=== PATIENT | male | born 1960 | race Caucasian/White ===

== ENCOUNTER 2017-08-07 02:59 | Observation (INO) | payer SELFPAY ==
[2017-08-07] MEDS ORDERED: ZOFRAN ONE (03:10)
[2017-08-07] MEDS ORDERED: PLAVIX ONE ×2 (03:17→11:58)
[2017-08-07] MEDS ORDERED: HEPARIN 10,000 UNITS/10 ML ONE ×2 (03:29→11:58)
[2017-08-07] MEDS ORDERED: VERSED ONE (03:29)
[2017-08-07] MEDS ORDERED: HEPARIN/NS 5000 UNIT/500ML(CATH LAB) 1,500 ML IR ONE (03:29)
[2017-08-07] MEDS ORDERED: ANGIOMAX IV ONE (03:30)
[2017-08-07] MEDS ORDERED: SUBLIMAZE ONE (03:30)
[2017-08-07] MEDS ORDERED: XYLOCAINE 2% INFILTRATI ONE (03:31)
[2017-08-07 03:35] LABS: Basophils % (Auto) 0.5 % (0.0-1.8); Eosinophils % (Auto) 0.6 % (0.0-4.3); Hematocrit 42.8 % (35.5-45.6); Hemoglobin 14.6 gm/dl (11.8-15.2); Mean Corpuscular HGB Conc 34 % (32-34); Mean Corpuscular Hemoglobin 34 pg (28-32); Mean Corpuscular Volume 101 fl (84-94); Platelet Count 226 K/mm3 (140-440); Red Blood Count 4.23 M/mm3 (3.65-5.03); Red Cell Distribution Width 13.7 % (13.2-15.2); White Blood Count 7.9 K/mm3 (4.5-11.0)
[2017-08-07] MEDS ORDERED: NACL 0.9% 500 ML 500 ML ONE (03:35)
[2017-08-07] MEDS ORDERED: NACL 0.9% 0 ML ONE (03:35)
--- NOTE | 2017-08-07 03:35 | XRay Report ---
FINAL REPORT EXAM: XR CHEST 1V AP HISTORY: stemi TECHNIQUE: A portable upright view of the chest was obtained. FINDINGS: The heart size and mediastinum appear normal. The lungs are not congested. There are no localized infiltrates or effusions. There are EKG leads overlying the chest wall. The bones and soft tissues well maintained. IMPRESSION: No active chest disease.
[2017-08-07] MEDS ORDERED: NITROGLYCERIN SYRINGE 3 ML ONE (03:42)
[2017-08-07] MEDS ORDERED: CALAN ONE (03:43)
[2017-08-07 03:52] LABS: Alanine Aminotransferase 15 units/L (7-56); Albumin 3.7 g/dL (3.9-5); Albumin/Globulin Ratio 1.3 %; Alkaline Phosphatase 54 units/L (35-129); Anion Gap 22 mmol/L; BUN/Creatinine Ratio 16; Blood Urea Nitrogen 14 mg/dL (9-20); Calcium 7.9 mg/dL (8.4-10.2); Carbon Dioxide 19 mmol/L (22-30); Creatine Kinase 97 units/L (55-170); Glucose 126 mg/dL (75-100); Potassium 3.8 mmol/L (3.6-5.0); Sodium 140 mmol/L (137-145); Total Protein 6.6 g/dL (6.3-8.2)
[2017-08-07] MEDS ORDERED: NACL 0.9% 1000 ML 1,000 ML IV ONE (04:06)
[2017-08-07] MEDS ORDERED: AMBIEN PO PRN (04:31)
[2017-08-07] MEDS ORDERED: MILK OF MAGNESIA PO PRN (04:31)
[2017-08-07] MEDS ORDERED: DULCOLAX PR PRN (04:31)
[2017-08-07] MEDS ORDERED: XANAX PO PRN (04:31)
[2017-08-07] MEDS ORDERED: PERCOCET 5/325 PO PRN (04:31)
[2017-08-07] MEDS ORDERED: MOTRIN PO PRN (04:31)
[2017-08-07] MEDS ORDERED: ALUM-MAG HYDROX-SIMETH 200-200-20MG/5ML PO PRN (04:31)
[2017-08-07] MEDS ORDERED: ZOFRAN IV PRN (04:31)
[2017-08-07] MEDS ORDERED: MORPHINE IV PRN (04:31)
--- NOTE | 2017-08-07 04:32 | History and Physical Report ---
ATTENDING PHYSICIAN: Rigo Dueñas MD REASON FOR ADMISSION: ST elevation myocardial infarction. HISTORY OF PRESENT ILLNESS: The patient is a 57-year-old gentleman with no significant past medical history who presented to [facility] with substernal chest pain present for approximately one hour. The patient was picked up by EMS ____ EKG showing a 4-[address] elevation myocardial infarction in the anterior leads with reciprocal changes inferiorly. PAST MEDICAL HISTORY: None. PAST SURGICAL HISTORY: None. SOCIAL HISTORY: The patient drinks several drinks per day. He occasionally utilizes cocaine and he has at least a pack per day smoking habit. FAMILY HISTORY: Nothing significant family history of early onset coronary artery disease. REVIEW OF SYSTEMS: Twelve point review of systems negative except for pertinent positives in HPI. LABORATORY DATA: Pending. EKG shows sinus rhythm with ST elevation in the precordial leads V1 through V4 with reciprocal changes inferolaterally. ASSESSMENT: ST elevation myocardial infarction. PLAN: The patient will be taken to the cardiac catheterization lab emergently for emergent cardiac catheterization. JOB# [id number] MR/NTS
[2017-08-07] MEDS ORDERED: COREG PO ONE (04:36)
[2017-08-07] MEDS ORDERED: PLAVIX PO ONE ×2 (04:36→04:50)
[2017-08-07] MEDS ORDERED: ZESTRIL PO ONE (04:36)
[2017-08-07] MEDS ORDERED: BABY ASPIRIN PO ONE (04:36)
--- NOTE | 2017-08-07 04:45 | Cardiac Catherization Report ---
ATTENDING PHYSICIAN: Rigo Dueñas MD PROCEDURE: 1. Left heart catheterization. 2. Left ventriculogram via hand injection. 3. PCI of the LAD with placement of a 3.0 x 18 mm Xience drug-eluting stent. INDICATIONS FOR PROCEDURE: The patient presented to the Emergency Room via EMS with acute anterior ST elevation myocardial infarction. ESTIMATED CONTRAST USED: Less than 30 mL. ESTIMATED CONTRAST USED: 140 mL. ESTIMATED BLOOD LOSS: Less than 30 mL. COMPLICATIONS: None. PROCEDURE IN DETAIL: The patient was brought to the cardiac catheterization lab emergently. The patient was prepped and draped in usual sterile fashion. A 2 mL of 1% lidocaine were injected around the right radial artery and a 6-Kiswahili sheath was placed via modified Seldinger technique. Next, a Sycamore catheter was advanced over the wire across the aortic valve into the left ventricle. The left ventricular pressure was measured and left ventriculogram was performed via hand injection. Next, pullback pressure was measured across the aortic valve. The Sycamore catheter was then engaged into the right coronary artery and angiography performed in multiple views. Next, a Sycamore catheter was removed over the wire and an EBU 3.5 guide catheter was advanced over the wire and engaged into the left main coronary ostia. Angiography was then performed in multiple views. RESULTS: The left main coronary artery is a large caliber vessel that bifurcates into the left anterior descending and left circumflex coronary arteries. There is no significant disease within the left main coronary artery system. The left circumflex coronary artery is a moderate caliber nondominant vessel that gives off 1 large obtuse marginal branch. There is no significant disease within the left circumflex coronary artery system. The left anterior descending coronary artery is a moderate to large caliber vessel that shows 99% stenosis just beyond a moderate caliber first diagonal branch. The 99% stenosis is approximately 16 mm in length. The remainder of the left anterior descending coronary artery shows luminal irregularities without significant stenosis. The first diagonal branch is a moderate caliber vessel that shows 50% ostial stenosis. RECOMMENDATIONS: 1. Emergent PCI of the LAD. 2. A BMW guidewire was advanced into the left anterior descending coronary artery, across the mid segment and 99% stenosis and anchored into the distal LAD. Next, a 2.5 x 12 mm balloon was advanced to the mid segment stenosis and inflated for 20 seconds. The balloon was then removed and a 3.0 x 18 mm Xience drug-eluting stent was advanced to the lesion and deployed at 16 atmospheres to provide luminal diameter of 3.25 mm. The stent balloon was then removed over the wire. Angiography was performed in multiple views. The stent was seen to be well apposed. The BMW wire was removed. Final angiography was performed and 3.5 EBU guide catheter was removed over the wire. Hemostasis was gained via TR band. Initial angiography demonstrated MARCELL 1 flow with 99% stenosis of the mid segment LAD. Post-procedural angiography demonstrated 0% residual stenosis and MARCELL 3 flow throughout. RECOMMENDATIONS: The patient will be admitted to the ICU. The patient will be started on dual antiplatelet therapy, statin, beta-drew and JAXON inhibitor. I recommend to the patient that he no longer smoke or utilize illicit substances. JOB# [id number] /JANE
[2017-08-07] MEDS ORDERED: ZOFRAN IV ONE (04:54)
[2017-08-07] MEDS ORDERED: NACL 0.9% 1000 ML 1,000 ML IV SCH (05:00)
--- NOTE | 2017-08-07 05:36 | Emergency Department Report ---
ED Chest Pain HPI - General Chief Complaint: Chest Pain Stated Complaint: CHEST PAIN Source: patient, EMS Mode of arrival: Stretcher Limitations: No Limitations, Other - History of Present Illness Initial Comments: Patient is a 87-year-old male with no past medical history presents to the ER via EMS with chest pain and shortness of breath that started just prior to arrival. EMS reported on an EKG prior to arrival. EKG determined to be a STEMI. Code STEMI called , Dr. Dueñas the french binder agricultural economics professor informed. Dr. Dueñas agreed that it is a STEMI. STEMI protocol followed. Patient lethargic but oriented 4. Patient answers questions appropriately. Patient complains of nausea and vomiting and diaphoresis. Patient denies past medical history. See nurse's notes. EMS report reviewed. Per EMS patient was given 324 mg of aspirin, placed on oxygen at 15 L, nitroglycerin 0.4 sublingual, and morphine 4 mg IV all given prior to arrival. MD Complaint: chest pain -: Sudden Onset: during rest Pain Location: substernal, left chest Severity: severe Severity scale (0 -10): 8 Quality: tightness, aching, heaviness, sharp, pressure Consistency: constant Improves With: nitroglycerin, rest, remaining still Worsens With: exertion, movement re: nausea, diaphoresis, dyspnea, sense of impending doom Other Symptoms: palpitations Treatments Prior to Arrival: aspirin, nitroglycerin, oxygen, other (morphine) Aspirin use within the Past 7 Days: (0) No - Related Data On Oral Contraceptives: No Allergies Allergy/AdvReac Type Severity Reaction Status Date / Time No Known Allergies Allergy Unverified 08/07/17 03:21 Heart Score - HEART Score History: Highly suspicious EKG: Significant ST-depression Age: 45-65 Risk factors: No known risk factors Troponin: < normal limit HEART Score: 5 ED Review of Systems ROS: Stated complaint: CHEST PAIN Other details as noted in HPI Comment: All other systems reviewed and negative Constitutional: diaphoresis, malaise, weakness Respiratory: see HPI, shortness of breath Cardiovascular: chest pain, palpitations, dyspnea on exertion Endocrine: no symptoms reported ED Past Medical Hx - Past Medical History Previous Medical History?: No - Surgical History Past Surgical History?: No - Family History Family history: hypertension - Social History Smoking Status: Current Every Day Smoker Substance Use Type: None ED Physical Exam - General Limitations: Other General appearance: lethargic, in distress - Head Head exam: Present: atraumatic, normocephalic - Eye Eye exam: Present: normal appearance - ENT ENT exam: Present: mucous membranes dry, other (cyanosis noted around the lips) - Neck Neck exam: Present: normal inspection - Respiratory Respiratory exam: Present: normal lung sounds bilaterally. Absent: respiratory distress - Cardiovascular Cardiovascular Exam: Present: regular rate, normal rhythm. Absent: systolic murmur, diastolic murmur, rubs, gallop - GI/Abdominal GI/Abdominal exam: Present: soft, normal bowel sounds - Rectal Rectal exam: Present: deferred - Extremities Exam Extremities exam: Present: normal inspection - Back Exam Back exam: Present: normal inspection - Neurological Exam Neurological exam: Present: oriented X3 - Skin Skin exam: Present: intact, cyanosis, diaphoretic. Absent: rash ED Course Vital Signs 08/07/17 08/07/17 03:18 03:37 Temperature 98.1 F Pulse Rate 64 72 Respiratory 20 24 Rate Blood Pressure 112/77 O2 Sat by Pulse 97 95 Oximetry MARCELL score - Marcell Score Age > 65: (0) No Aspirin use within the Past 7 Days: (0) No 3 or more CAD Risk Factors: (0) No 2 or more Angina events in past 24 hrs: (0) No Known CAD with more than 50% Stenosis: (0) No Elevated Cardiac Markers: (0) No ST Deviation Greater than 0.5mm: (1) Yes MARCELL Score: 1 ED Medical Decision Making - Lab Data Result diagrams: 08/07/17 03:22 08/07/17 03:00 - EKG Data -: EKG Interpreted by Me EKG shows normal: sinus rhythm Rate: normal - EKG Data Interpretation: acute TN - Radiology Data Radiology results: image reviewed interpreted by me: No acute findings on chest xr - Medical Decision Making STEMI protocol followed. At bedside entire time. I with patient to slab inspector report given to slab inspector. Care handed off to slab inspector at 03:26. - Differential Diagnosis cp. TN, stemi, sob. Critical Care Time: Yes Critical care attestation.: If time is entered above; I have spent that time in minutes in the direct care of this critically ill patient, excluding procedure time. Critical Care Time: 45 minutes spent with patient for critical care time. For STEMI. At bedside entire time. ED Disposition Clinical Impression: STEMI (ST elevation myocardial infarction), Chest pain, Shortness of breath Disposition: DC-09 OP ADMIT IP TO THIS HOSP Is pt being admited?: Yes Does the pt Need Aspirin: No Condition: Critical Time of Disposition: 03:24
[2017-08-07] MEDS: COLACE PO SCH ×2 (09:22→21:58)
[2017-08-07 09:39] LABS: Urine Drugs of Abuse Note Disclamer
[2017-08-07] MEDS: ZESTRIL PO SCH (11:57)
[2017-08-07] MEDS ORDERED: LOPRESSOR IV ONE (11:58)
[2017-08-07] MEDS ORDERED: NACL 0.9% 1000 ML ONE (11:58)
[2017-08-07] MEDS ORDERED: NITROSTAT SL ONE (11:58)
[2017-08-07] MEDS ORDERED: HEPARIN/ 0.45% NACL-25,000 UNIT/500 ML ONE (11:58)
--- NOTE | 2017-08-07 17:23 | Event Note ---
Date: 08/07/17 Patient is clinically stable following her angioplasty and stenting of the LAD for acute STEMI. He is chest pain-free, and the right radial cath site is well-healed without hematoma. He'll be observed overnight in the ICU, transferred to telemetry tomorrow. Continue anti-ischemic therapy including dual oral antiplatelet therapy.
[2017-08-07] MEDS: COREG PO SCH (21:58)
[2017-08-08 04:36] LABS: Basophils % (Auto) 0.3 % (0.0-1.8); Hematocrit 46.1 % (35.5-45.6); Hemoglobin 15.4 gm/dl (11.8-15.2); Mean Corpuscular HGB Conc 33 % (32-34); Mean Corpuscular Hemoglobin 33 pg (28-32); Mean Corpuscular Volume 99 fl (84-94); Platelet Count 225 K/mm3 (140-440); Red Blood Count 4.66 M/mm3 (3.65-5.03); Red Cell Distribution Width 13.3 % (13.2-15.2); White Blood Count 8.4 K/mm3 (4.5-11.0)
[2017-08-08 04:54] LABS: Alanine Aminotransferase 19 units/L (7-56); Albumin 3.5 g/dL (3.9-5); Alkaline Phosphatase 59 units/L (35-129); Anion Gap 18 mmol/L; BUN/Creatinine Ratio 9; Blood Urea Nitrogen 9 mg/dL (9-20); Calcium 8.4 mg/dL (8.4-10.2); Carbon Dioxide 24 mmol/L (22-30); Chloride 102.7 mmol/L (98-107); Glucose 95 mg/dL (75-100); Potassium 4.4 mmol/L (3.6-5.0); Sodium 140 mmol/L (137-145)
[2017-08-08 05:04] LABS: Albumin/Globulin Ratio 1.2 %; Total Protein 6.4 g/dL (6.3-8.2)
[2017-08-08] MEDS: COLACE PO SCH ×2 (10:26→21:51)
[2017-08-08] MEDS: BABY ASPIRIN PO SCH (10:26)
[2017-08-08] MEDS: ZESTRIL PO SCH (10:26)
[2017-08-08] MEDS: COREG PO SCH ×2 (10:26→21:51)
[2017-08-08] MEDS: PLAVIX PO SCH (10:26)
--- NOTE | 2017-08-08 11:03 | Progress Note ---
Assessment and Plan Acute STEMI s/p PCI of the LAD Ischemic Cardiomyopathy EF 30-35% on echocardiogram Substance abuse Plan: Transfer to telemetry. Continue anti-ischemic therapy including dual oral antiplatelet therapy. For planned discharge home tomorrow. Subjective Date of service: 08/08/17 Interval history: Patient reports he is feeling better. He denies chest pain. Short burst on NSVT on telemetry. Patient remained asymptomatic. Objective Vital Signs Temp Pulse Pulse Resp BP Pulse Ox 08/08/17 10:26 69 129/78 08/08/17 08:50 113/78 97 08/08/17 08:40 62 18 113/78 96 08/08/17 08:30 76 21 113/78 88 08/08/17 08:20 80 15 113/78 95 08/08/17 08:10 59 L 15 113/78 94 08/08/17 08:00 98.1 F 57 L 60 15 113/78 96 08/08/17 07:50 59 L 15 133/85 95 08/08/17 07:40 81 19 133/85 94 08/08/17 07:30 64 14 133/85 95 08/08/17 07:20 54 L 18 133/85 95 08/08/17 07:10 60 14 133/85 94 08/08/17 07:00 56 L 16 115/67 08/08/17 06:50 55 L 15 115/67 95 08/08/17 06:40 55 L 15 115/67 94 08/08/17 06:30 59 L 17 115/67 95 08/08/17 06:20 56 L 15 115/67 98 08/08/17 06:10 51 L 13 115/67 97 08/08/17 06:00 52 L 15 115/67 97 08/08/17 05:50 54 L 15 120/72 97 08/08/17 05:40 54 L 14 120/72 97 08/08/17 05:30 55 L 16 120/72 97 08/08/17 05:20 55 L 15 120/72 97 08/08/17 05:10 55 L 14 120/72 97 08/08/17 05:00 82 15 113/74 96 08/08/17 04:50 56 L 16 113/74 97 08/08/17 04:40 54 L 16 113/74 97 08/08/17 04:30 53 L 14 113/74 97 08/08/17 04:20 56 L 15 113/74 98 08/08/17 04:10 55 L 15 113/74 99 08/08/17 04:00 59 L 62 16 110/67 99 08/08/17 03:51 98.0 F 08/08/17 03:50 54 L 15 110/67 95 08/08/17 03:40 62 14 110/67 94 08/08/17 03:30 55 L 15 110/67 95 08/08/17 03:20 56 L 14 110/67 95 08/08/17 03:10 79 14 110/67 98 08/08/17 03:00 54 L 15 110/67 87 08/08/17 02:50 49 L 15 123/75 95 08/08/17 02:40 56 L 17 123/75 95 08/08/17 02:30 55 L 16 123/75 95 08/08/17 02:20 56 L 16 123/75 95 08/08/17 02:10 61 14 123/75 94 08/08/17 02:00 58 L 16 123/75 84 08/08/17 01:50 67 16 120/76 96 08/08/17 01:40 56 L 18 120/76 95 08/08/17 01:30 61 15 120/76 95 08/08/17 01:20 69 13 120/76 96 08/08/17 01:10 69 14 120/76 96 08/08/17 01:00 56 L 15 120/76 86 08/08/17 00:50 58 L 17 122/77 95 08/08/17 00:40 56 L 15 122/77 96 08/08/17 00:30 56 L 15 122/77 97 08/08/17 00:20 69 16 122/77 97 08/08/17 00:10 58 L 14 122/77 94 08/08/17 00:00 98.4 F 57 L 14 122/77 97 08/07/17 23:50 57 L 15 142/77 95 08/07/17 23:40 61 15 142/77 95 08/07/17 23:30 57 L 17 142/77 96 08/07/17 23:20 59 L 16 142/77 96 08/07/17 23:10 66 12 142/77 99 08/07/17 23:00 86 13 142/77 98 08/07/17 22:50 58 L 16 148/70 96 08/07/17 22:40 61 18 148/70 95 08/07/17 22:30 83 21 148/70 96 08/07/17 22:20 58 L 15 148/70 95 08/07/17 22:10 59 L 14 148/70 96 08/07/17 22:00 68 15 148/70 93 08/07/17 21:58 65 135/71 08/07/17 21:50 81 16 135/71 96 08/07/17 21:40 62 17 135/71 97 08/07/17 21:30 62 19 97 08/07/17 21:20 67 17 135/71 95 08/07/17 21:11 63 16 135/71 96 08/07/17 21:01 71 18 135/71 97 08/07/17 20:51 82 14 135/75 96 08/07/17 20:41 65 18 135/75 98 08/07/17 20:31 70 17 135/75 97 08/07/17 20:21 65 17 135/75 98 08/07/17 20:10 68 22 135/75 94 08/07/17 20:00 98.1 F 78 55 L 11 L 135/75 96 08/07/17 19:51 68 17 135/72 96 08/07/17 19:46 93 08/07/17 19:41 75 21 135/72 94 08/07/17 19:30 72 18 135/72 93 08/07/17 19:21 69 18 135/72 96 08/07/17 19:11 76 16 135/72 93 08/07/17 19:00 69 19 135/72 93 08/07/17 18:51 68 16 142/81 96 08/07/17 18:45 70 16 142/81 95 08/07/17 18:41 65 17 142/81 95 08/07/17 18:31 64 18 142/81 94 08/07/17 18:21 65 19 142/81 97 08/07/17 18:11 63 19 142/81 95 08/07/17 18:01 63 17 142/81 97 08/07/17 17:51 142/81 79 L 08/07/17 17:41 142/81 93 08/07/17 17:31 142/81 93 08/07/17 17:21 142/81 96 08/07/17 17:11 142/81 93 08/07/17 17:01 142/81 95 08/07/17 16:51 144/81 93 08/07/17 16:41 144/81 93 08/07/17 16:31 144/81 93 08/07/17 16:24 98.4 F 08/07/17 16:21 144/81 92 08/07/17 16:11 144/81 91 08/07/17 16:01 144/81 93 08/07/17 15:51 132/73 93 08/07/17 15:41 63 16 132/73 93 08/07/17 15:31 68 12 132/73 97 08/07/17 15:21 63 19 132/73 95 08/07/17 15:11 59 L 18 132/73 96 08/07/17 15:01 66 13 132/73 96 08/07/17 14:51 90 15 134/74 98 08/07/17 14:41 64 18 134/74 96 08/07/17 14:31 67 14 134/74 97 08/07/17 14:21 60 14 134/74 95 08/07/17 14:11 66 16 134/74 94 08/07/17 14:01 67 15 134/74 94 08/07/17 13:51 64 17 136/80 93 08/07/17 13:41 63 13 136/80 95 08/07/17 13:31 68 15 136/80 92 08/07/17 13:21 70 14 136/80 93 08/07/17 13:11 61 18 136/80 93 08/07/17 13:01 63 17 136/80 92 08/07/17 12:51 65 13 137/88 81 L 08/07/17 12:41 60 16 137/88 82 L 08/07/17 12:31 67 12 137/88 94 08/07/17 12:21 77 15 137/88 95 08/07/17 12:11 63 15 137/88 93 08/07/17 12:01 62 16 137/88 95 08/07/17 12:00 63 95 08/07/17 11:57 64 139/85 08/07/17 11:51 63 17 133/80 95 08/07/17 11:47 97.8 F 08/07/17 11:41 66 12 133/80 96 08/07/17 11:31 59 L 14 133/80 96 08/07/17 11:21 59 L 15 133/80 96 08/07/17 11:11 63 15 133/80 94 08/07/17 11:01 59 L 14 133/80 96 - Physical Examination General: No Apparent Distress Cardiac: Positive: Reg Rate and Rhythm - Labs and Meds Cardiac Enzymes 08/08/17 Range/Units 04:04 AST 64 H (5-40) units/L CBC 08/08/17 Range/Units 04:04 WBC 8.4 (4.5-11.0) K/mm3 RBC 4.66 (3.65-5.03) M/mm3 Hgb 15.4 H (11.8-15.2) gm/dl Hct 46.1 H (35.5-45.6) % Plt Count 225 (140-440) K/mm3 Lymph # 1.9 (1.2-5.4) K/mm3 Porter # 0.8 (0.0-0.8) K/mm3 Eos # 0.1 (0.0-0.4) K/mm3 Baso # 0.0 (0.0-0.1) K/mm3 Comprehensive Metabolic Panel 08/08/17 Range/Units 04:04 Sodium 140 (137-145) mmol/L Potassium 4.4 (3.6-5.0) mmol/L Chloride 102.7 (98-107) mmol/L Carbon Dioxide 24 (22-30) mmol/L BUN 9 (9-20) mg/dL Creatinine 1.0 (0.8-1.5) mg/dL Glucose 95 (75-100) mg/dL Calcium 8.4 (8.4-10.2) mg/dL AST 64 H (5-40) units/L ALT 19 (7-56) units/L Alkaline Phosphatase 59 (35-129) units/L Total Protein 6.4 (6.3-8.2) g/dL Albumin 3.5 L (3.9-5) g/dL
[2017-08-08] MEDS: ALDACTONE PO SCH (13:35)
[2017-08-09 08:59] VITALS: BP 129/91
--- NOTE | 2017-08-09 10:10 | Discharge Summary ---
Providers - Providers Date of Admission: 08/07/17 04:31 Attending physician: ANDREA HERNANDEZ 08/07/17 04:29 Consult to Cardiac Rehabilitation [CONS] Routine Reason For Exam: Cardiac Rehab Evaluation 08/07/17 04:31 Consult to Dietitian/Nutrition [CONS] Routine Physician Instructions: Reason For Exam: Reason for Consult: Diet education Primary care physician: STOCKROOM KEEPER Hospitalization Reason for admission: STEMI Condition: Good Hospital course: Pt presented to hospital with acute anterior wall ST elevation ID. He underwent urgent cardiac cath and LAD PCI. Post procedure echo revealed EF 30- 35% consistent with ischemic cardiomyopathy. Disposition: DC-01 TO HOME OR SELFCARE Time spent for discharge: 30 min Core Measure Documentation - Palliative Care Palliative Care/ Comfort Measures: Not Applicable - Core Measures Any of the following diagnoses?: acute ID, heart failure - Acute ID Discharge Requirements Aspirin at discharge: Yes JAXON/ARB for LVSD if EF <40%: Yes Beta drew at discharge: Yes Statin for LDL = or >100 mg/dl on DC: Yes - Heart Failure Discharge Requirements JAXON/ARB for LVSD if EF <40%: Yes Beta drew at discharge: Yes Exam - Constitutional Vitals: Temp Pulse Resp BP Pulse Ox 97.6 F 91 H 18 129/91 94 08/09/17 08:58 08/09/17 08:58 08/09/17 08:58 08/09/17 08:58 08/09/17 08:58 General appearance: Present: no acute distress - EENT Eyes: Present: PERRL - Neck Neck: Present: supple - Respiratory Respiratory effort: normal Respiratory: bilateral: CTA - Cardiovascular Rhythm: regular Heart Sounds: Absent: systolic murmur - Extremities Extremities: no ischemia - Integumentary Integumentary: Present: clear Plan Activity: advance as tolerated Follow up with: DORIAN HAMILTON MD [Primary Care Provider] - 7 Days MELANIE OBRIEN MD [Staff Physician] - 7 Days Prescriptions: Aspirin [Aspirin BABY CHEW TAB] 81 mg PO QDAY #30 tab.chew AtorvaSTATin [Lipitor] 40 mg PO QHS #30 tablet Carvedilol [Coreg] 3.125 mg PO BID #60 tablet Clopidogrel [Plavix] 75 mg PO QDAY #30 tablet Lisinopril [Zestril TAB] 2.5 mg PO QDAY #30 tablet Spironolactone [Aldactone] 25 mg PO QDAY #30 tablet
[2017-08-09] MEDS: BABY ASPIRIN PO SCH (10:15)
[2017-08-09] MEDS: COLACE PO SCH (10:15)
[2017-08-09] MEDS: PLAVIX PO SCH (10:15)
[2017-08-09] MEDS: COREG PO SCH (10:15)
[2017-08-09] MEDS: ALDACTONE PO SCH (10:16)
[2017-08-09] MEDS: ZESTRIL PO SCH (10:16)
== END 2017-08-09 11:35 | disposition home or self-care (01) ==
LOC: ED 02:59 → CC1 04:31 → 4A 08-08 15:34
PROVIDERS: ADMIT Internal Medicine Cardiovascular Disease; ATTEND Internal Medicine Cardiovascular Disease
DX: I21.09 ST elevation (STEMI) myocardial infarction involving other coronary artery of anterior wall (principal); I42.9 Cardiomyopathy, unspecified; F17.210 Nicotine dependence, cigarettes, uncomplicated; Z82.49 Family history of ischemic heart disease and other diseases of the circulatory system
CPT/HCPCS: 36415; 71010; 80053; 80307; 82550; 84484; 85025; 85347; 93005; 93010; 93306; 93458; 94760; 99291; A9270; C1725; C1769; C1874; C1887; C1894; C9606; G0378; J1644; J2250; J2405; J3010; J7030; 92941; J0583; J7040; Q9967

== ENCOUNTER 2019-02-03 18:24 | Emergency (ER) | payer OTHER ==
--- NOTE | 2019-02-03 18:37 | Emergency Department Report ---
Blank Doc - Documentation Documentation: pt presents with a cough that began 4-5 days ago some mucus production (+) congestion PMHx MS (+) smoker VSS order: CXR sent to [facility] for further eval
[2019-02-03 18:39] VITALS: BP 135/86
--- NOTE | 2019-02-03 20:09 | XRay Report ---
PROCEDURE: XR CHEST ROUTINE 2V TECHNIQUE: PA and lateral chest radiographs were obtained. HISTORY: cough x 4-5 days, pt is a smoker COMPARISONS: CXR 08/07/2017. FINDINGS: Heart: Normal. Mediastinum/Vessels: Normal. Lungs/Pleural space: Normal. Bony thorax: No acute osseous abnormality. IMPRESSION: No acute cardiopulmonary process seen. No change. This document is electronically signed by Yesenia Zamudio MD., February 03 2019 08:07:26 PM ET
[2019-02-03] MEDS ORDERED: TYLENOL PO ONE (21:00)
[2019-02-03] MEDS ORDERED: DUONEB *Not for PRN Use IH ONE (21:00)
[2019-02-03] MEDS ORDERED: SOLU-Medrol IM ONE (21:00)
--- NOTE | 2019-02-03 22:06 | Emergency Department Report ---
- General Chief Complaint: Upper Respiratory Infection Stated Complaint: COUGH Time Seen by Provider: 02/03/19 18:34 Source: patient Mode of arrival: Ambulatory Limitations: No Limitations - History of Present Illness Initial Comments: Patient is a 58-year-old -Romanian male with a history of hypertension and coronary artery disease who presents to the ED with complaint of acute onset persistent nasal and sinus congestion, frontal sinus pressure, no cough with pleuritic chest wall pain for the last 3 days. Patient states that he has been taking [id number] decongestants like Mucinex with no relief. Patient states that the congestion and cough as well as at night when he lays him to sleep. Patient denies fever, chills, nausea, vomiting, chest pain, shortness of breath, dizziness, change in vision, abdominal pain or sore throat. MD Complaint: cough, rhinorrhea, nasal congestion, sinus pain -: Sudden, days(s) (3) Severity: severe Severity scale (0 -10): 7 Quality: aching Consistency: constant Improves With: nothing Worsens With: nothing Context: sick contacts Associated Symptoms: denies other symptoms, myalgias, headache, rhinorrhea, nasal congestion, cough, chest pain (pleuritic). denies: fever, chills, diaphoresis, sore throat, stiff neck, shortness of breath, abdominal pain, nausea, vomiting, diarrhea, dysuria, rash, right sweats, epistaxis, hoarseness Treatments Prior to Arrival: none - Related Data Previous Rx's Medication Instructions Recorded Last Taken Type Aspirin [Aspirin BABY CHEW TAB] 81 mg PO QDAY #30 tab.chew 08/09/17 Unknown Rx AtorvaSTATin [Lipitor] 40 mg PO QHS #30 tablet 08/09/17 Unknown Rx Carvedilol [Coreg] 3.125 mg PO BID #60 tablet 08/09/17 Unknown Rx Clopidogrel [Plavix] 75 mg PO QDAY #30 tablet 08/09/17 Unknown Rx Lisinopril [Zestril TAB] 2.5 mg PO QDAY #30 tablet 08/09/17 Unknown Rx Spironolactone [Aldactone] 25 mg PO QDAY #30 tablet 08/09/17 Unknown Rx Amoxicillin/Potassium Clav 1 each PO Q12H #20 tablet 02/03/19 Unknown Rx [Augmentin 875-125 Tablet] Benzonatate [Tessalon Perles] 100 mg PO Q8HR #30 capsule 02/03/19 Unknown Rx Ibuprofen [Motrin] 800 mg PO Q8HR PRN #20 tablet 02/03/19 Unknown Rx Prednisone [predniSONE 10 mg 10 mg PO .TAPER #21 tab.ds.pk 02/03/19 Unknown Rx (6-Day Pack, 21 Tabs)] Allergies Allergy/AdvReac Type Severity Reaction Status Date / Time No Known Allergies Allergy Verified 02/03/19 18:26 ED Review of Systems ROS: Stated complaint: COUGH Other details as noted in HPI Comment: All other systems reviewed and negative Constitutional: no symptoms reported, see HPI. denies: chills, diaphoresis, fever, malaise Eyes: as per HPI. denies: eye pain, eye discharge, vision change ENT: as per HPI, congestion. denies: ear pain, throat pain, hearing loss, epistaxis Respiratory: no symptoms reported, see HPI. denies: cough, shortness of breath, SOB with exertion, SOB at rest, wheezing Cardiovascular: as per HPI. denies: chest pain, palpitations, dyspnea on exertion, edema, paroxysmal nocturnal dyspnea Endocrine: no symptoms reported, see HPI. denies: excessive sweating, flushing, intolerance to cold, intolerance to heat, increased hunger, increased thirst, increased urine, unexplained weight gain Gastrointestinal: as per HPI. denies: abdominal pain, nausea, diarrhea Genitourinary: as per HPI. denies: urgency, dysuria Musculoskeletal: as per HPI. denies: back pain, joint swelling, arthralgia Skin: as per HPI. denies: rash, lesions Neurological: as per HPI. denies: headache, weakness, numbness, paresthesias Psychiatric: as per HPI. denies: anxiety, depression Hematological/Lymphatic: as per HPI. denies: easy bleeding, easy bruising ED Past Medical Hx - Past Medical History Previous Medical History?: No Hx Hypertension: Yes Hx Heart Attack/AMI: Yes Hx Congestive Heart Failure: No Hx Diabetes: No Hx Asthma: No Hx COPD: No Hx HIV: No - Surgical History Past Surgical History?: No - Social History Smoking Status: Current Every Day Smoker Substance Use Type: Alcohol, Cocaine - Medications Home Medications: Home Medications Medication Instructions Recorded Confirmed Last Taken Type Aspirin [Aspirin BABY CHEW TAB] 81 mg PO QDAY #30 tab.chew 08/09/17 Unknown Rx AtorvaSTATin [Lipitor] 40 mg PO QHS #30 tablet 08/09/17 Unknown Rx Carvedilol [Coreg] 3.125 mg PO BID #60 tablet 08/09/17 Unknown Rx Clopidogrel [Plavix] 75 mg PO QDAY #30 tablet 08/09/17 Unknown Rx Lisinopril [Zestril TAB] 2.5 mg PO QDAY #30 tablet 08/09/17 Unknown Rx Spironolactone [Aldactone] 25 mg PO QDAY #30 tablet 08/09/17 Unknown Rx Amoxicillin/Potassium Clav 1 each PO Q12H #20 tablet 02/03/19 Unknown Rx [Augmentin 875-125 Tablet] Benzonatate [Tessalon Perles] 100 mg PO Q8HR #30 capsule 02/03/19 Unknown Rx Ibuprofen [Motrin] 800 mg PO Q8HR PRN #20 tablet 02/03/19 Unknown Rx Prednisone [predniSONE 10 mg 10 mg PO .TAPER #21 tab.ds.pk 02/03/19 Unknown Rx (6-Day Pack, 21 Tabs)] ED Physical Exam - General Limitations: No Limitations General appearance: alert, in no apparent distress - Head Head exam: Present: atraumatic, normocephalic, normal inspection - Eye Eye exam: Present: normal appearance, PERRL, EOMI. Absent: scleral icterus, conjunctival injection Pupils: Present: normal accommodation - ENT ENT exam: Present: normal exam, normal orophraynx, mucous membranes moist, TM's normal bilaterally, normal external ear exam, other (grossly congested nasal passages) - Neck Neck exam: Present: normal inspection, full ROM. Absent: tenderness, meningismus, lymphadenopathy, thyromegaly - Respiratory Respiratory exam: Present: normal lung sounds bilaterally, wheezes (mildly diffuse). Absent: respiratory distress, rales, rhonchi, chest wall tenderness, accessory muscle use, decreased breath sounds - Cardiovascular Cardiovascular Exam: Present: regular rate, normal rhythm, normal heart sounds. Absent: systolic murmur, diastolic murmur, rubs, gallop - GI/Abdominal GI/Abdominal exam: Present: soft, normal bowel sounds. Absent: tenderness, guarding, rebound, hyperactive bowel sounds, hypoactive bowel sounds, organomegaly - Rectal Rectal exam: Present: deferred - Extremities Exam Extremities exam: Present: normal inspection, full ROM, normal capillary refill - Back Exam Back exam: Present: normal inspection, full ROM. Absent: tenderness, CVA tenderness (L), paraspinal tenderness - Neurological Exam Neurological exam: Present: alert, oriented X3, CN II-XII intact, normal gait, reflexes normal - Psychiatric Psychiatric exam: Present: normal affect, normal mood - Skin Skin exam: Present: warm, dry, intact, normal color. Absent: rash ED Course Vital Signs 02/03/19 18:37 Temperature 98.5 F Pulse Rate 99 H Respiratory 16 Rate Blood Pressure 135/86 O2 Sat by Pulse 97 Oximetry - Reevaluation(s) Reevaluation #1: 02/03/19 22:07 Patient is alert and oriented 3 and is not in distress. Patient without a signs are stable. Chest x-ray shows no acute cardiopulmonary abnormalities. Patient was treated in the ED with DuoNeb and Solu-Medrol and and reevaluation, patient's coughing spells have significantly improved. Patient was discharged home on medications, and advised to follow-up with his primary care physician in 7-10 days for reevaluation or return to the ED immediately if symptoms get worse . ED Medical Decision Making - Radiology Data Radiology results: report reviewed, image reviewed No acute cardiopulmonary abnormalities - Medical Decision Making Patient presented to the ED with acute upper respiratory infection symptoms. Patient is alert and oriented 3 and is not in distress on physical exam. Patient without a signs are stable. Chest x-ray shows no acute cardiopulmonary abnormalities. Patient was treated in the ED with DuoNeb and Solu-Medrol and and reevaluation, patient's coughing spells have significantly improved. Patient was discharged home on medications, and advised to follow-up with his primary care physician in 7-10 days for reevaluation or return to the ED immediately if symptoms get worse. - Differential Diagnosis acute frontal sinusitis; acute URI, acute bronchitis Critical care attestation.: If time is entered above; I have spent that time in minutes in the direct care of this critically ill patient, excluding procedure time. ED Disposition Clinical Impression: Acute upper respiratory infection Acute sinusitis Qualifiers: Sinusitis location: unspecified location Recurrence: non-recurrent Qualified Code(s): J01.90 - Acute sinusitis, unspecified Acute bronchitis Qualifiers: Bronchitis organism: unspecified organism Qualified Code(s): J20.9 - Acute bronchitis, unspecified Disposition: DC-01 TO HOME OR SELFCARE Is pt being admited?: No Does the pt Need Aspirin: No Condition: Stable Instructions: Acute Bronchitis (ED), Upper Respiratory Infection (ED), Sinusitis (ED) Additional Instructions: Take medications with food, drink plenty of fluids and follow up with your primary care physician in 7-10 days for reevaluation. Return to the ED immediately if symptoms get worse. Prescriptions: Amoxicillin/Potassium Clav [Augmentin 875-125 Tablet] 1 each PO Q12H #20 tablet Ibuprofen [Motrin] 800 mg PO Q8HR PRN #20 tablet PRN Reason: Pain , Severe (7-10) Prednisone [predniSONE 10 mg (6-Day Pack, 21 Tabs)] 10 mg PO .TAPER #21 tab.ds.pk Benzonatate [Tessalon Perles] 100 mg PO Q8HR #30 capsule Referrals: ESHA YOUNG MD [Primary Care Provider] - 3-5 Days Time of Disposition: 22:11 Print Language: SETSWANA
== END 2019-02-03 22:45 | disposition home or self-care (01) ==
LOC: ED 18:24
DX: J06.9 Acute upper respiratory infection, unspecified (principal); J01.90 Acute sinusitis, unspecified; J20.9 Acute bronchitis, unspecified; I10 Essential (primary) hypertension; I25.2 Old myocardial infarction; I25.10 Atherosclerotic heart disease of native coronary artery without angina pectoris; F17.200 Nicotine dependence, unspecified, uncomplicated; F14.90 Cocaine use, unspecified, uncomplicated; Z79.82 Long term (current) use of aspirin
CPT/HCPCS: 71046; 94640; 96372; 99283; J2930

== ENCOUNTER 2022-02-05 11:33 | Emergency (ER) | payer OTHER | END 2022-02-05 14:00 | disposition left against medical advice (07) | LOC: ED 11:33 | DX: Z53.21 Procedure and treatment not carried out due to patient leaving prior to being seen by health care provider (principal) ==